=== PATIENT | female | born 1945 | race Caucasian/White ===

== ENCOUNTER 2018-12-27 11:24 | Observation (INO) ==
--- NOTE | 2018-12-27 12:33 | Diag Imaging Result Doc PS360 ---
EXAM: CHEST-2 VIEWS HISTORY: chest pain, SOB, generalized weakness TECHNIQUE: Chest two views COMPARISON: 07/14/2016 FINDINGS: The lungs are well expanded. The heart is not enlarged. The vessels are not distended. There are no infiltrates. No pleural effusions. There are multiple surgical clips in the left axilla. IMPRESSION: No acute abnormality. Electronically signed by Aubrey Hillman 12/27/2018 12:31 PM
--- NOTE | 2018-12-27 12:52 | Diag Imaging Result Doc PS360 ---
EXAM: CT HEAD W/O CONTRAST HISTORY: headache TECHNIQUE: CT head without contrast COMPARISON: 07/09/2016 FINDINGS: No parenchymal hemorrhage. No epidural or subdural hematoma. No subarachnoid hemorrhage. There is mild atrophy. No mass identified on this noncontrasted exam. No hydrocephalus. No sinus opacification. IMPRESSION: No hemorrhage. Negative brain CT without contrast. This exam was performed using automated exposure control, adjustment of mA or kV according to patient size, and/or use of iterative reconstruction technique. Electronically signed by Aubrey Hillman 12/27/2018 12:50 PM
[2018-12-27 13:05] LABS: BASO# 0.03 X1000 (0.0-0.2); BASO% 0.5 % (0.0-0.8); EOS# 0.12 X1000 (0.0-0.7); EOS% 2.1 % (0.0-10.0); HEMATOCRIT 38.6 % (37.0-47.0); HEMOGLOBIN 12.5 g/dL (12.0-16.0); LYMPH% 33.5 % (20.5-51.1); MCH 30.9 PG (27-31); MCHC 32.4 g/dL (33-37); MCV 95.3 FL (81-99); MONO% 7.1 % (1.7-9.3); MPV 10.7 FL (7.4-10.4); NEUT# 3.22 X1000 (1.4-6.5); NEUT% 56.8 % (42.2-75.2); PLT 177 X1000 (130-400); RBC 4.05 XMIL (4.2-5.4); RDW 12.7 % (11.5-14.5); WBC 5.67 X1000 (4.8-10.8)
[2018-12-27] MEDS ORDERED: ASPIRIN PO ONE (13:05)
[2018-12-27 13:14] LABS: INR 0.99; PROTIME 13.9 Seconds (11.0-16.0); PTT 26.4 Seconds (22.3-41.8)
[2018-12-27 13:43] LABS: ALB/GLOB RATIO 1.8; ALBUMIN 4.6 g/dL (3.5-5.0); CALCIUM 9.4 mg/dL (8.8-10.2); CREATININE 1.4 mg/dL (0.5-0.9); MAGNESIUM 1.4 mg/dL (1.5-2.7); POTASSIUM 3.6 mmol/L (3.5-5.1); TOTAL BILIRUBIN 0.4 mg/dL (0.20-1.00); TOTAL PROTEIN 7.2 g/dL (6.3-8.3)
--- NOTE | 2018-12-27 14:25 | PROVIDER DOCUMENTATION ---
This chart was entered by Becki San Scribe, acting as scribe for Lisa Crandall CRNP. HPI-Chest Pain - General Chief Complaint: Chest Pain Stated Complaint: HEALY,CHEST TIGHTNESS,DEPRESSION,CYST ON HEAD Time Seen by Provider: 12/27/18 11:40 Source: patient Allergies/Adverse Reactions: Patient Allergies Allergy/AdvReac Type Severity Reaction Status Date / Time codeine Allergy ITCHING Verified 09/07/17 01:15 hydrocodone bitartrate * AdvReac ITCHING Verified 09/07/17 01:15 [From [facility]] Home Medications: Home Medication List Medication Instructions Recorded Confirmed Last Taken Type Furosemide [Lasix] 20 mg PO BID 09/14/15 02/14/17 02/14/17 History Metformin HCl 850 mg PO BID 09/14/15 02/14/17 02/14/17 History Omeprazole [Prilosec] 20 mg PO DAILY 09/14/15 02/14/17 02/13/17 History Insulin Aspart [Novolog] 15 unit SQ TID 07/08/16 02/14/17 02/14/17 History Aspirin 325 mg PO DAILY #0 tablet 07/20/16 02/14/17 02/14/17 Rx Buspirone [Buspar] 7.5 mg PO BID #0 tablet 07/20/16 02/14/17 02/14/17 Rx Docusate Sodium [Colace] 100 mg PO BID #0 capsule 07/20/16 02/14/17 02/14/17 Rx Donepezil [Aricept] 10 mg PO QHS #0 tablet 07/20/16 02/14/17 02/13/17 Rx Gabapentin [Neurontin] 900 mg PO BID #0 capsule 07/20/16 02/14/17 02/14/17 Rx Insulin Glargine [Lantus] 80 unit SUBQ QAM #0 insuln.pen 07/20/16 02/14/1701/27 Rx Levothyroxine [Synthroid] 75 microgm PO DAILY@0700 #0 tablet 07/20/16 02/14/17 02/13/17 Rx ROSUVAstatin [Crestor] 40 mg PO QHS #0 tablet 07/20/16 02/14/17 02/13/17 Rx Ropinirole [Requip] 0.5 mg PO BID #0 tablet 07/20/16 02/14/17 02/14/17 Rx Sertraline [Zoloft] 100 mg PO DAILY #0 tablet 07/20/16 02/14/17 02/14/17 Rx Oxycodone HCl/Acetaminophen 1 each PO 4XDAY #10 tablet 12/23/16 02/14/17 02/13/17 Rx [Percocet 5-325 mg Tablet] Meloxicam [Mobic] 7.5 mg PO DAILY PRN PRN #15 tablet 03/03/17 Unknown Rx Cyclobenzaprine [Flexeril] 10 mg PO TID PRN #30 tablet 03/20/17 Unknown Rx Methocarbamol [Robaxin-750] 750 mg PO Q8H PRN #20 tablet 03/20/17 Unknown Rx Tramadol HCl [Ultram] 50 mg PO Q6-8H PRN PRN #20 tablet 03/20/17 Unknown Rx Bisacodyl [Dulcolax] 10 mg MO BID #20 supp 06/27/17 Unknown Rx Polyethylene Glycol 3350 [Miralax] 1 cap PO BID #1 powder 06/27/17 Unknown Rx Phenazopyridine HCl [Pyridium] 100 mg PO TID #6 tab 02/24/18 Unknown Rx Sulfamethoxazole/Trimethoprim 1 ea PO BID #10 tab 02/24/18 Unknown Rx [Bactrim Ds Tablet] - History of Present Illness-CP Nature of Presenting Problem: 73yof c/o generalized weakness for 2 weeks with intermittent exertional chest pain and sob x one month. She reports she lost her balance due to weakness and almost fell this morning. She was caught by her granddaughter. She denies fever, chills, nausea, vomiting, diarrhea, cough, or any other symptoms and is non- toxic in appearance. Location: reports: central Chest Pain Radiation: reports: no radiation Quality of Pain: reports: tightness Severity in ED: mild Onset/Duration: other (2 weeks, one month) Timing: still present, intermittent, constant Context/Activities at Onset: reports: none Modifying Factors: improves with: nothing Associated Symptoms: reports: shortness of breath, weakness (generalized). denies: fever/chills, nausea, vomiting Prior Chest Pain/Cardiac Workup: reports: other (hx of one stent) Similar Symptoms Previously?: No Recently Seen Here or By Another Healthcare Provider: No Review of Systems - Adult - REVIEW OF SYSTEMS - ADULT Constitutional: denies: chills, fever Eyes: denies: discharge, dry eyes Ears, Nose, Mouth & Throat: denies: ear discharge, ear pain Cardiovascular: reports: chest pain. denies: palpitations Respiratory: reports: shortness of breath. denies: cough Gastrointestinal: denies: nausea, vomiting Genitourinary: denies: dysuria, hematuria Musculoskeletal: denies: back pain, muscle aches, muscle weakness Integumentary: reports: no symptoms reported Neurological: denies: dizziness/vertigo, headache/migraines Psychiatric: reports: no symptoms reported Endocrine: reports: no symptoms reported Hematologic/Lymphatic: reports: no symptoms reported Allergic/Immunologic: reports: no symptoms reported All Other Systems: Reviewed and Negative Past History - Adult - PAST MEDICAL HISTORY-ADULT Review of Records: reports: Old Records Reviewed, Nursing Assessment Review, Medications Reviewed Major Childhood Illnesses: reports: denies history Cardiovascular: reports: CAD (s/p stent), HTN, hyperlipidemia Respiratory: reports: asthma Gastrointestinal: reports: denies history, GERD Obstetrical/Gynecological: reports: denies history Genitourinary: reports: denies history Musculoskeletal: reports: arthritis, chronic pain Neurological: reports: denies history Psychiatric: reports: anxiety Endocrine/Immune: reports: denies history Other Conditions: reports: denies history - PRIOR SURGERIES/PROCEDURES Surgical/Procedure History: reports: appendectomy, hysterectomy (and oophorectomy), other (cardiac stent) - IMMUNIZATION STATUS Childhood Immunizations: See Nurse Assessment Flu Vaccine: See Nurse Assessment - FAMILY HISTORY Family History: reviewed, not pertinent - SOCIAL HISTORY Smoking: non-smoker Substance Use: denies Living Situation: family Physical Exam-General - PHYSICAL EXAM-ADULT Initial Vital Signs Reviewed: Yes - CONSTITUTIONAL General Appearance: alert, no apparent distress. negative: lethargic, slow to respond - EYES Eyes: PERRL/EOMI, pink conjunctivae. negative: sclera injected, scleral icterus, sunken eyes - HEAD, EARS, NOSE, MOUTH & THROAT HENMT: normocephalic/atraumatic, moist mucous membranes - NECK Neck: non-tender, full range of motion, supple, normal inspection - RESPIRATORY Respiratory: chest non-tender, lungs clear, normal breath sounds, no pleuratic chest pain, no respiratory distress, no accessory muscle use - CARDIOVASCULAR Cardiovascular: normal peripheral pulses, regular rate, rhythm, no edema, no gallop, no JVD, no murmur - GASTROINTESTINAL (ABDOMEN) Abdominal Exam: normal bowel sounds, non tender, soft, no organomegaly, no pulsatile mass. negative: distended, guarding - MUSCULOSKELETAL Back Exam: normal inspection Extremity: normal range of motion, non-tender, normal inspection, no pedal edema - SKIN Integumentary: normal color, warm/dry. negative: cyanosis, diaphoresis, jaundice, mottled, pallor - NEUROLOGIC Neurologic: grossly normal, no motor/sensory deficits - PSYCHIATRIC Psych/Mental Status: normal mood/affect, normal thought content, normal thought process, oriented x 3 - HEART Score HEART Score: History: Moderately Suspicious HEART Score: ECG: Non-Specific Repolarization Disturbance/LBBB/PM HEART Score: Age: > or = 65 Years HEART Score: Risk Factors for Atherosclerotic Disease: > or = 3 Risk Factors or History of Atherosclerotic Disease HEART Score: Troponin: < or = Normal Limit Total HEART Score:: 6 Progress - PLAN OF CARE/RESULTS Progress/Plan/Lab Results: Vital Signs - 8 hr 12/27/18 11:36 12/27/18 11:49 12/27/18 11:50 Temperature 98.6 F Pulse Rate 92 H 89 Respiratory Rate 17 10 L Blood Pressure 131/83 163/93 O2 Sat by Pulse Oximetry 95 98 100 12/27/18 12:00 12/27/18 12:02 12/27/18 12:10 Temperature Pulse Rate 89 85 84 Respiratory Rate 17 12 11 L Blood Pressure 147/100 O2 Sat by Pulse Oximetry 100 100 99 Laboratory Results - last 24 hr 12/27/18 12/27/18 12/27/18 11:40 12:56 12:56 WBC 5.67 RBC 4.05 L Hgb 12.5 Hct 38.6 MCV 95.3 MCH 30.9 MCHC 32.4 L RDW Std Deviation 12.7 Plt Count 177 MPV 10.7 H Immature Gran % (Auto) 0.0 Neut % (Auto) 56.8 Lymph % (Auto) 33.5 Turner % (Auto) 7.1 Eos % (Auto) 2.1 Baso % (Auto) 0.5 Immature Gran # (Auto) 0.00 Neut # (Auto) 3.22 Lymph # (Auto) 1.90 Turner # (Auto) 0.40 Eos # (Auto) 0.12 Baso # (Auto) 0.03 PT INR PTT (Actin FS) Sodium 144 Potassium 3.6 Chloride 105 Carbon Dioxide 25 Anion Gap 14 BUN 14 Creatinine 1.4 H Estimated GFR/1.73 m2 37 BUN/Creatinine Ratio 10 Glucose 116 H POC Glucose 156 H Calculated Osmolality 288 Calcium 9.4 Magnesium 1.4 L Total Bilirubin 0.40 AST 26 ALT 12 Alkaline Phosphatase 35 Creatine Kinase 52 Troponin T Wbc-M-Gcjlhpohvkb Pept Total Protein 7.2 Albumin 4.6 Globulin 2.6 Albumin/Globulin Ratio 1.8 12/27/18 12/27/18 12/27/18 12:56 12:56 12:56 WBC RBC Hgb Hct MCV MCH MCHC RDW Std Deviation Plt Count MPV Immature Gran % (Auto) Neut % (Auto) Lymph % (Auto) Turner % (Auto) Eos % (Auto) Baso % (Auto) Immature Gran # (Auto) Neut # (Auto) Lymph # (Auto) Turner # (Auto) Eos # (Auto) Baso # (Auto) PT 13.9 INR 0.99 PTT (Actin FS) 26.4 Sodium Potassium Chloride Carbon Dioxide Anion Gap BUN Creatinine Estimated GFR/1.73 m2 BUN/Creatinine Ratio Glucose POC Glucose Calculated Osmolality Calcium Magnesium Total Bilirubin AST ALT Alkaline Phosphatase Creatine Kinase Troponin T < 0.010 [id number]-Ikwzxryvfhc Pept 230 Total Protein Albumin Globulin Albumin/Globulin Ratio Orders Category Date Time Status Cardiac Monitoring DIRECTED Care 12/27/18 12:10 Active Saline Loc NOW Care 12/27/18 12:11 Active CHEST-2 VIEWS [RAD] Stat Exams 12/27/18 12:[address] HEAD W/O CONTRAST [CT] Stat Exams 12/27/18 12:10 Completed CBC WITH DIFF [HEME] Stat Lab 12/27/18 12:56 Completed CK PROFILE [SP CHEM] Stat Lab 12/27/18 12:56 Completed COMPREHENSIVE METABOLIC PANEL [CHEM] Stat Lab 12/27/18 12:56 Completed MAGNESIUM [CHEM] Stat Lab 12/27/18 12:56 Completed PRO B-NATRIURETIC PEPTIDE Stat Lab 12/27/18 12:56 Completed PROTIME WITH INR [COAG] Stat Lab 12/27/18 12:56 Completed PTT [COAG] Stat Lab 12/27/18 12:56 Completed TROPONIN T Stat Lab 12/27/18 12:56 Completed TROPONIN T Timed Lab 12/27/18 14:55 Uncollected UA NIMS W/REFLEX CULT [URINALYSIS] Stat Lab 12/27/18 12:10 Uncollected Aspirin Med 12/27/18 13:05 Discontinued 325 mg PO NOW ONE EKG [EKG] Routine Ther 12/27/18 14:55 Ordered 1410- Admitting HPS paged. Pt in agreement with admission plan. Result Diagrams: 12/27/18 12:56 12/27/18 12:56 - EKG 1 Time of EKG reading by physician:: 11:33 EKG Read and Signed by:: Hal Polk EKG Interpretation (*Must complete 3 of following elements*): Abnormal Rate: 88 Rhythm: Sinus rhythm MO Interval: shortened ST Wave: non-specific ST changes - XRAY 1 XRAY Study: Chest Impression: Abnormal (FINDINGS: The lungs are well expanded. The heart is not enlarged. The vessels are not distended. There are no infiltrates. No pleural effusions. There are multiple surgical clips in the left axilla. IMPRESSION: No acute abnormality.) - CT/MRI 1 CT Study: Head Impression: Abnormal (FINDINGS: No parenchymal hemorrhage. No epidural or subdural hematoma. No subarachnoid hemorrhage. There is mild atrophy. No mass identified on this noncontrasted exam. No hydrocephalus. No sinus opacification. IMPRESSION: No hemorrhage. Negative brain CT without contrast. This exam was performed using automated exposure control, adjustment of mA or kV according to patient size, and/or use of iterative reconstruction technique. Electronically signed by Aubrey Hillman 12/27/2018 12:50 PM) - CONSULTS/PCP/HOSPITALIST Notification #1 *Consult/PCP/Hospitalist*: ANDREW Diaz EPIDEMIOLOGY INTERN Time Discussed: 14:16 Reason/Comments: chest pain admission Consult Disposition: Admit Departure - Departure Date of Disposition Decision: 12/27/18 Time of Disposition Decision: 14:20 DIAGNOSIS: SOB (shortness of breath), Generalized weakness Chest pain Qualifiers: Chest pain type: unspecified Qualified Code(s): R07.9 - Chest pain, unspecified Disposition: ADMITTED INPATIENT 09 Certified Medical Emergency: Emergent Condition: Stable Referrals and Follow-Ups: Wyatt Chambers MD [Primary Care Provider] - - Critical Care Note This patient required my direct & personal management of CC.: No Attestation - Physician/ RASHAWN Attestation Patient care was provided by Advanced Practice Provider:: Yes Advanced Practice Provider:: Lisa Crandall Advanced Practice Provider documentation review:: The Mid-level provider documentation, treatment plan and medical decision making was reviewed by the physician who agrees with all treatment and medical decision making by the MLP. The physician spent face to face time with patient:: No Advanced Practice Provider documentation review:: Supervising physician onsite and consulted in the evaluation and care of this patient. The physician did not have a face to face encounter with the patient. This chart was documented by the indicated scribe, (Becki San, [place]) a nd accurately reflects the services I performed and decisions made by me, Lisa Crandall CRNP, as attested by the provider's signature.
[2018-12-27] MEDS ORDERED: NITROGLYCERIN SL PRN (15:49)
[2018-12-27] MEDS ORDERED: TYLENOL PO PRN (15:49)
[2018-12-27] MEDS ORDERED: ZOFRAN IV PRN (15:49)
[2018-12-27] MEDS ORDERED: MORPHINE IV PRN (15:49)
[2018-12-27] MEDS ORDERED: MAGNESIUM SULFATE 2 GM/S.W.I. 2 GM/50 ML IVPB IV ONE (16:24)
--- NOTE | 2018-12-27 16:25 | ED EKG INTERP ---
This chart was entered by Becki San Scribe, acting as scribe for Hal Polk MD. EKG Interpretation - EKG Time of EKG reading by physician:: 15:01 EKG Read and Signed by:: Hal Polk EKG Interpretation (*Must complete 3 of following elements*): Abnormal Rate: 81 Rhythm: Normal sinus rhythm [place]: normal ST Wave: normal Attestation - Physician/ RASHAWN Attestation Patient care was provided by Advanced Practice Provider:: Yes Advanced Practice Provider:: Lisa Crandall Advanced Practice Provider documentation review:: The Mid-level provider documentation, treatment plan and medical decision making was reviewed by the physician who agrees with all treatment and medical decision making by the MLP. The physician spent face to face time with patient:: No Advanced Practice Provider documentation review:: Supervising physician onsite and consulted in the evaluation and care of this patient. The physician did not have a face to face encounter with the patient. This chart was documented by the indicated scribe, (Becki San Scribe) and accurately reflects the services I performed and decisions made by me, Hal Polk MD, as attested by the provider's signature.
[2018-12-27] MEDS: HUMULIN R SUBQ SCH ×2 (17:08→20:13)
--- NOTE | 2018-12-27 17:21 | HISTORY AND PHYSICAL ---
PRIMARY CARE PROVIDER: Wyatt Chambers MD CHIEF COMPLAINT: Itching, chest pressure, shortness of breath, dizziness, lightheadedness, falls and headaches. HISTORY OF PRESENT ILLNESS: Ms. Trudi Berger is a 73-year-old female with a medical history of coronary artery disease with one cardiac stent, diabetes mellitus type 2, chronic pain syndrome and GERD who apparently over the last one month has complained of just generalized itchiness all over her body without rash, she states from head to toe, but also along with that she has had some chest pressure which has been intermittent. It does not radiate anywhere. She does not get nauseated. She does have shortness of breath with it. She has also had dizziness and lightheadedness over a couple of months with a few falls with one being around 2-3 weeks ago when she was trying to move a table. She fell and broke her left fifth pinky toe and also hit the back of her head. She has been having headaches. She has been taking Goody's every day instead of aspirin every day. She denies any tobacco. She is not morbidly obese but there is a pretty significant family history of coronary disease. We will admit and do a cardiac workup and send her for a cardiac stress test in the morning. She is on a diabetic diet and we will make her n.p.o. after midnight for the stress test. Cardiac enzymes are negative. There are no ST changes on her EKG. For now we will monitor and she can followup with Cardiology as an outpatient, or we may eventually have to consult them here. She states that lately she has had a lot of financial stress with her children and she also ran out of the medication she takes for anxiety about a month ago as well. PAST MEDICAL HISTORY: 1. Diabetes mellitus type 2. 2. Neuropathy in the feet and legs. 3. Hypothyroidism. 4. Coronary artery disease with one cardiac stent. 5. Depression and anxiety. 6. Hyperlipidemia. 7. Constipation. She states it is resolved and she has more diarrhea than constipation now. 8. Chronic pain syndrome in her feet primarily. 9. Arthritis. 10.Restless leg syndrome. 11.Hypertension. 12.GERD. 13.Iron deficiency anemia. 14.Gallstones. 15.Melanoma in 1987 status post excision and lymph node removal. 16.Chronic kidney disease stage 3. PAST SURGICAL HISTORY: 1. Cardiac stent in 2005. 2. Bilateral cataracts. 3. Appendectomy. 4. Hysterectomy. 5. Stage IV melanoma removed from the left forearm. 6. Left arm radical axillary surgery removing 21 lymph nodes and did not have to receive chemotherapy. 7. Right shoulder repair. SOCIAL HISTORY: Denies tobacco, alcohol or illicit drug use. She lives with her granddaughter and great granddaughter. She still works. 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 FAMILY HISTORY: Father's side of the family, DVT and coronary artery disease. Mother's side of the family, coronary artery disease, congestive heart failure and depression. She had four brothers; three are but all four had to have bypass surgery for coronary artery disease. One sister had a brain tumor. Another sister had a myocardial infarction and cervical cancer. ALLERGIES: Codeine and hydrocodone. HOME MEDICATIONS: Not verified, awaiting these to be verified. REVIEW OF SYSTEMS: A 14-point review of systems is complete and all are negative except those mentioned above in the HPI. PHYSICAL EXAMINATION: VITAL SIGNS: Temperature 98.6, heart rate 82, respiratory rate 15, blood pressure 147/100. O2 saturation 100% on room air. GENERAL: Ms. Trudi Berger is a 73-year-old female. She is in no acute distress. She is able to answer questions appropriately. HEENT: Atraumatic. Normocephalic. Pupils equal, round and reactive to light. Extraocular movements are intact. Mucous membranes are moist. NECK: Trachea is midline. Negative JVD or carotid bruits. LUNGS: Clear to auscultation bilateral breath sounds. No accessory muscle use or work with breathing noted. CARDIOVASCULAR: S1 and S2. Regular rate and rhythm. No rubs, gallops or murmurs. No lower extremity edema. +2 dorsalis pedis and radial pulses. ABDOMEN: Soft. Nontender. Nondistended. Positive bowel sounds x4. EXTREMITIES: Moves all extremities equally with decreased range of motion. NEUROLOGIC: Alert and oriented x3. Follows commands. Sensory intact except for a little bit of numbness in the feet and tingling in the feet. SKIN: Warm, dry and intact. LABORATORY DATA: White blood cell count 5000, hemoglobin 12, hematocrit 38, platelet count 177. INR 0.99. PTT 26.4. Sodium 144, potassium 3.6, BUN 14, creatinine 1.4, glucose 116, calcium 9.4, magnesium 1.4, bilirubin 0.40. AST 26, ALT 12. CK 52. Troponin less than 0.01 x2. Pro-BNP 230, albumin 4.6. IMAGING: Chest x-ray with no acute findings. Head CT with no hemorrhage. Negative for any acute findings. EKG; normal sinus rhythm rate [address]-T changes. ASSESSMENT AND PLAN: 1. Atypical chest pain. It has been intermittent and feels like pressure. She has had dizziness and lightheadedness for a couple of months and even prior to having this symptom as well. She has had itching for a month along with a lot of stress and her anxiety medications falling off, or she did not have time to get them renewed. While this could be caused from stress, she does have a history of coronary artery disease with cardiac stent and she had stopped taking her aspirin and changed to Goody powders once a day. She will need to continue the aspirin and statin. It does not look like she is on a beta jacobo but will need to continue with insulin control as well. She will have a stress test in the morning. 2. Complaints of weakness for the last couple of weeks. We will consult physical therapy. 3. Frequent falls, see No. 2. She had fallen and hit her head and has had headaches since. She had a head CT this admission and it is negative. 4. Diabetes mellitus type 2. Will do pattern blood glucoses and sliding scale insulin and check a hemoglobin A1c. Do a diabetic diet. 5. Hypothyroidism. Continue Synthroid once it is verified. 6. Anxiety/depression. Will continue those medications once they are verified. 7. Chronic pain syndrome. Continue her Percocet once it is verified. 8. Hypertension. Continue home medications once verified. 9. Gastroesophageal reflux disease. 10.Chronic kidney disease stage 3. It looks like she is at baseline. 11.Deep vein thrombosis prophylaxis with Lovenox. Dictated by SHERICE White for Prashanth Piña MD cc: SHERICE White MD
[2018-12-27 17:33] LABS: URINE SOURCE CLEAN CATCH
[2018-12-27 17:44] LABS: BILIRUBIN URINE NEGATIVE (NEGATIVE); BLOOD URINE NEGATIVE (NEGATIVE); COLOR YELLOW; GLUCOSE URINE NEGATIVE (NEGATIVE); KETONE URINE TRACE mg/dL (NEGATIVE); LEUKOCYTES URINE TRACE (NEGATIVE); NITRITE URINE NEGATIVE (NEGATIVE); PH URINE 7.5; PROTEIN URINE 30 mg/dL (NEGATIVE); SP GRAVITY URINE 1.019; TURBIDITY URINE CLEAR (CLEAR); UROBILINOGEN URINE 2 mg/dL (NORMAL)
[2018-12-27 17:49] LABS: UR EPITHELIAL CELLS <10 /HPF (<10); URINE BACTERIA NEGATIVE /HPF; URINE RBC <10 /HPF (<10); URINE WBC <10 /HPF (<10)
[2018-12-27 18:08] LABS: URINE CASTS NONE SEEN; URINE CRYSTALS NONE SEEN; URINE SMALL ROUND CELLS NONE SEEN; URINE YEAST NONE SEEN
--- NOTE | 2018-12-27 18:52 | PROGRESS NOTE ---
DATE: 12/27/2018 HISTORY OF PRESENT ILLNESS: The patient came in with atypical chest pain. She has a history of CAD. A stent in 1995. One PCI. She has not had a workup in a couple of years. She used to see Dr. Montemayor but has been set up with a new senior construction project manager. She, herself, has lost herself to follow- up. In any case, she was admitted for atypical chest pain. We will place her here. Do serial cardiac enzymes. EKG so far testing is unrevealing. We will get an echo an and perfusion scan in the morning and set her up with new Cardiology and follow. DISPOSITION: Pending her clinical status. cc: Prashanth Piña MD
[2018-12-27] MEDS ORDERED: NS 1,000 ML IV ONE (23:00)
[2018-12-28] MEDS: PRILOSEC PO SCH ×2 (06:18→13:45)
[2018-12-28] MEDS: HUMULIN R SUBQ SCH ×4 (06:18→21:41)
[2018-12-28 07:02] LABS: BASO# 0.03 X1000 (0.0-0.2); BASO% 0.7 % (0.0-0.8); EOS% 2.4 % (0.0-10.0); HEMATOCRIT 36.3 % (37.0-47.0); HEMOGLOBIN 11.8 g/dL (12.0-16.0); LYMPH# 1.52 X1000 (1.2-3.4); LYMPH% 36.9 % (20.5-51.1); MCHC 32.5 g/dL (33-37); MCV 95.3 FL (81-99); MONO# 0.26 X1000 (0.11-0.59); MONO% 6.3 % (1.7-9.3); MPV 10.6 FL (7.4-10.4); NEUT# 2.21 X1000 (1.4-6.5); NEUT% 53.7 % (42.2-75.2); PLT 158 X1000 (130-400); RBC 3.81 XMIL (4.2-5.4); WBC 4.12 X1000 (4.8-10.8)
[2018-12-28 07:07] LABS: INR 1.04; PROTIME 14.5 Seconds (11.0-16.0)
[2018-12-28 07:20] LABS: HEMOGLOBIN A1C 8.2 % (4.8-6.0)
[2018-12-28 07:34] LABS: AGAP 13; ALB/GLOB RATIO 1.8; ALBUMIN 4.2 g/dL (3.5-5.0); ALKALINE PHOSPHATASE 35 U/L (32-104); BUN 14 mg/dL (8-22); CALCIUM 9.4 mg/dL (8.8-10.2); CHLORIDE 107 mmol/L (98-107); CHOLESTEROL 227 mg/dL (0-200); COSMO 290; CREATININE 1.1 mg/dL (0.5-0.9); ESTIMATED GFR 49; GLUCOSE 173 mg/dL (70-104); GOT 20 U/L (10-30); GPT 10 U/L (10-36); HDL 29 mg/dL (45-65); LDL 142 mg/dL; MAGNESIUM 1.9 mg/dL (1.5-2.7); POTASSIUM 3.6 mmol/L (3.5-5.1); SODIUM 143 mmol/L (136-145); TCO2 23 mmol/L (25-35); TOTAL BILIRUBIN 0.34 mg/dL (0.20-1.00); TOTAL PROTEIN 6.5 g/dL (6.3-8.3); TRIGLYCERIDES 280 mg/dL (35-135); VLDL 56 mg/dL
[2018-12-28 07:45] LABS: FREE T4 0.92 ng/dL (0.93-1.70); TSH 3.06 uIUmL (0.27-4.20)
[2018-12-28] MEDS ORDERED: LEXISCAN ONE (07:46)
--- NOTE | 2018-12-28 07:50 | EKG Report ---
Test Performed on : 12/28/2018 07:03:04 AM Test Reason : chest pain Blood Pressure : / mmHG Vent. Rate : 064 BPM Atrial Rate : 064 BPM P-R Int : 150 ms QRS Dur : 086 ms QT Int : 442 ms P-R-T Axes : 040 018 056 degrees QTc Int : 455 ms Normal sinus rhythm. Nonspecific T wave abnormality Abnormal ECG When compared with ECG of 27-DEC-2018 15:01, (Unconfirmed) Criteria for Inferior infarct are no longer present Nonspecific T wave abnormality, improved in Lateral leads Unconfirmed Result
--- NOTE | 2018-12-28 08:16 | EKG Report ---
Test Performed on : 12/27/2018 3:01:38 PM Test Reason : CP Blood Pressure : / mmHG Vent. Rate : 081 BPM Atrial Rate : 081 BPM P-R Int : 134 ms QRS Dur : 084 ms QT Int : 412 ms P-R-T Axes : 088 -12 084 degrees QTc Int : 478 ms Normal sinus rhythm. Inferior infarct , age undetermined Abnormal ECG When compared with ECG of 27-DEC-2018 11:33, (Unconfirmed) Nonspecific T wave abnormality, worse in Lateral leads Unconfirmed Result
[2018-12-28] MEDS ORDERED: AMINOPHYLLINE ONE (08:32)
[2018-12-28] MEDS ORDERED: ASPIRIN EC PO SCH ×2 (09:00)
[2018-12-28] MEDS ORDERED: ASPIRIN PO SCH (09:00)
--- NOTE | 2018-12-28 10:45 | EKG Report ---
Test Performed on : 12/27/2018 11:33:06 AM Test Reason : ED. NO EKG ORDER FOR MUSE Blood Pressure : / mmHG Vent. Rate : 088 BPM Atrial Rate : 088 BPM P-R Int : 104 ms QRS Dur : 080 ms QT Int : 366 ms P-R-T Axes : 004 -03 069 degrees QTc Int : 442 ms Sinus rhythm. with short MN Nonspecific ST and T wave abnormality Abnormal ECG When compared with ECG of 27-JUN-2017 16:50, T wave inversion now evident in Inferior leads Nonspecific T wave abnormality, worse in Lateral leads Unconfirmed Result
[2018-12-28] MEDS: ZOLOFT PO SCH (11:47)
[2018-12-28] MEDS: LOVENOX SUBQ SCH (11:47)
--- NOTE | 2018-12-28 12:05 | PROGRESS NOTE ---
DATE: 12/28/2018 SUBJECTIVE: The patient just had a stress test and echocardiogram done today. She is resting comfortably in bed. At this moment, she is not complaining of chest pain, but she feels anxious. I will wait for the results. I will put her back on most of her home medications. PHYSICAL EXAMINATION: Vital Signs: Temperature 98.7 degrees, pulse 73, respiratory rate 20, blood pressure 121/75, oxygen saturation 100% on room air. HEENT: Normocephalic, atraumatic. PERRLA. Neck: Supple. No JVD. No masses. Central trachea. Chest: Clear to auscultation. No wheezing. No rales. Abdomen: Soft, nontender, nondistended. No hepatosplenomegaly. Extremities: No edema, no clubbing, no cyanosis. Neurological: The patient is alert and oriented x3. No focal deficits. LABORATORY: WBC 4.1, hemoglobin 11.8, hematocrit 36.3, platelets 158,000. Sodium 143, potassium 3.6, chloride 107, bicarbonate 23, BUN 14, creatinine 1.1, glucose 173, calcium 9.4. Hemoglobin A1c 8.2. Troponins negative x4. Triglycerides 280, cholesterol 227, LDL 142. TSH 3. ASSESSMENT AND PLAN: 1. Chest pain, probably atypical. We have requested an evaluation by cardiology department and also a stress test and echocardiogram. I will wait for more recommendations. At this moment, this patient is feeling better. 2. Generalized weakness for a couple weeks. Continue physical therapy. She seems to be doing fine. 3. Frequent falls. The patient has a really bad peripheral neuropathy. We will see what Physical Therapy has to say for now. 4. Type 2 diabetes. Continue pattern blood sugar and sliding scale insulin. Hemoglobin A1c is 8.2. 5. Hypothyroidism. Continue with Synthroid. 6. Anxiety and depression. Continue with home medications. 7. Chronic pain syndrome. She is on Percocet at night. 8. Hypertension. Continue with same management. Stable. 9. Gastroesophageal reflux disease. I put her back on pantoprazole. 10. Chronic kidney disease stage 3. This is her baseline. 11. Deep vein thrombosis prophylaxis with Lovenox. cc: Patrick Bauer MD
--- NOTE | 2018-12-28 12:39 | CARDIOLOGY CONSULTATION ---
DATE: 12/28/2018 SUBJECTIVE: Cardiology was consulted for chest discomfort, known coronary artery disease, a history of CAD and stent placement, diabetes, chronic pain syndrome, and gastroesophageal reflux disease. She has had itching all over her body without any rash and also noticed some intermittent chest pressures not radiating to the back. She does have some shortness of breath. She had some dizziness and lightheadedness. No lolita syncope. She fell and broke her left pinky toe and came to the emergency room. CT scan of her head was unremarkable. REVIEW OF SYSTEMS: A 14-point review of system was done.GI System: There is no history of nausea, vomiting or hematemesis. Central Nervous System: No focal weakness to suggest a CVA, TIA. System: There is no dysuria or hematuria. Respiratory System: There is no history of cough, expectoration, hemoptysis. There is no history of fevers or chills. PAST MEDICAL HISTORY: 1. Coronary artery disease, status post stent placement to left anterior descending artery in the past. Last cardiac catheterization 07/17/2016, patent stent to the left anterior descending artery. Right coronary artery 10% to 15% stenosis. Mild irregularities in the circumflex noted. 2. Diabetes. 3. Neuropathy. 4. Hypothyroidism. 5. Depression and anxiety. 6. Constipation. 7. Restless legs syndrome. 8. Hypertension. 9. Gastroesophageal reflux disease. 10. Iron deficiency anemia. 11. Gallstones. PAST SURGICAL HISTORY: 1. Cardiac stent. 2. Cataract surgery. 3. Appendectomy. 4. Hysterectomy. 5. 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 6. Left arm axillary surgery. 7. Right shoulder repair. SOCIAL HISTORY: She does not smoke. Does not drink. FAMILY HISTORY: Positive for DVT, coronary artery disease. ALLERGIES: Allergic to codeine and hydrocodone. HOME MEDICATIONS: Include 1. Omeprazole 20. 2. Metformin 850 b.i.d. 3. Insulin 50 mg NovoLog subcutaneous t.i.d. 4. BuSpar 15 mg a day. 5. Gabapentin 900 mg p.o. b.i.d. 6. Insulin as directed. 7. Crestor 40. 8. Requip 0.5 mg twice a day. 9. Fenofibrate 145. 10. Sertraline 50 mg tablets 150 a day. 11. Levothyroxine. PHYSICAL EXAMINATION: Vital Signs: Blood pressure was 121/75. Cardiovascular System: Normal jugular venous pressure. There was no thyromegaly. There was no carotid bruit. First and second heart sounds were heard. There was no S3 gallop. Respiratory System: Normal air entry. There are no crepitations or rhonchi. Abdomen: Soft, nontender. There was no guarding or rigidity. Bowel sounds were heard. Central nervous system: Alert and oriented. She was moving all 4 extremities. Extremities: Showed no pedal edema. HEENT: Atraumatic, normocephalic. Pupils were equal and reacting to light. ASSESSMENT AND PLAN: 1. Ms. Trudi Berger is a 73-year-old, lady with history of coronary artery disease, stent placement to left anterior descending artery in the past, diabetes, diabetic neuropathy, hypothyroidism, hyperlipidemia, hypertension, who comes with complaints of having intermittent episodes of chest pain as described above. From a cardiac standpoint, she was ruled out for myocardial infarction by cardiac enzymes. She also had frequent falls. Her electrocardiogram revealed normal sinus rhythm. There were no ST-T changes to suggest ischemia. Stress test did not reveal any evidence of ischemia. 2. From a cardiac standpoint, would recommend continuing enteric-coated aspirin, lipid-lowering agents, and I have added Lopressor 25 mg twice daily to her medical regimen. 3. Diabetes. Continue with the current medications. 4. Hyperlipidemia. Continue with Crestor and fenofibrate. 5. She had history of gastroesophageal reflux disease and is on omeprazole. I have not made any changes. Thank you for the consult. We will make follow-up appointments to see us in the office in about 4 weeks. cc: Navneet Griggs MD
--- NOTE | 2018-12-28 13:28 | Diag Imaging Result Document ---
PROCEDURE NAME: MYOCARDIAL PERF SCAN, STR/REST - 12/28/2018 INDICATION: Chest pain. PROCEDURES PERFORMED: 1. Lexiscan stress. 2. One-day stress rest myocardial perfusion imaging. PROCEDURE IN DETAIL: Ms. eBrger was brought to the nuclear laboratory and had a resting study with injection of 10.8 mCi of technetium-99m sestamibi with usual imaging protocol utilized. She subsequently came back and had a Lexiscan stress. At peak stress, was injected with 31.2 mCi of technetium-99m sestamibi with usual imaging protocol utilized. FINDINGS: Lexiscan stress results: 1. Baseline EKG shows sinus rhythm. 2. No evidence of ischemic related EKG changes or significant arrhythmias occurred during the course of the study. Perfusion imaging results: 1. No evidence of abnormal extracardiac uptake. 2. TID ratio of 0.83. 3. Perfusion imaging demonstrated a very small size, mild intensity, fixed defect at the apex, likely suggestive of apical thinning artifact. There was no evidence of ischemic changes. This appears to be a low risk study. 4. There is a normal ejection fraction of 81%. The end-diastolic volume is 52, end-systolic volume of 10. Normal wall motion is noted. cc: MD Emily Villaseñor CRNP
[2018-12-28] MEDS: LOPRESSOR PO SCH ×2 (13:45→21:39)
--- NOTE | 2018-12-28 14:18 | ECHO REPORT ---
ORDER DATE: 12/28/2018 INDICATION: Chest pain, shortness of breath. FINDINGS: 1. Right atrium appears mildly enlarged with a dimension of 4 cm. 2. Trace tricuspid regurgitation. 3. Normal RV size and systolic function. 4. Trace pulmonic insufficiency. 5. Normal left atrial size with a dimension of 3.6 cm. 6. No mitral valve prolapse. Trace mitral regurgitation. 7. Normal LV size, end-diastolic dimension of 4.3. Mild to moderate left ventricular hypertrophy with a posterior and interventricular septal wall thickness of 1.4 cm each. Normal LV systolic function. Estimated EF of 60-65% with normal wall motion. 8. Aortic valve opens well. It is trileaflet. There is trace insufficiency. No stenosis. 9. Aorta appears normal in visualized segments. 10. No pericardial effusion seen. cc: MD Emily Villaseñor CRNP
[2018-12-28] MEDS ORDERED: MORPHINE IV PRN (16:04)
[2018-12-28] MEDS: CRESTOR PO SCH (21:39)
[2018-12-28] MEDS: BUSPAR PO SCH (21:39)
[2018-12-28] MEDS: NEURONTIN PO SCH (21:39)
[2018-12-28] MEDS: PERCOCET-5 PO SCH (21:40)
[2018-12-29] MEDS: PRILOSEC PO SCH (06:25)
[2018-12-29] MEDS: SYNTHROID PO SCH (06:25)
[2018-12-29] MEDS: HUMULIN R SUBQ SCH ×4 (06:27→20:28)
[2018-12-29 07:25] LABS: HEMATOCRIT 37.7 % (37.0-47.0); HEMOGLOBIN 12.3 g/dL (12.0-16.0); MCH 31.3 PG (27-31); MCHC 32.6 g/dL (33-37); MCV 95.9 FL (81-99); MPV 11.2 FL (7.4-10.4); RBC 3.93 XMIL (4.2-5.4); WBC 5.22 X1000 (4.8-10.8)
[2018-12-29 07:46] LABS: CALCIUM 9.9 mg/dL (8.8-10.2); CREATININE 1.2 mg/dL (0.5-0.9); POTASSIUM 3.8 mmol/L (3.5-5.1)
[2018-12-29] MEDS: ZOLOFT PO SCH (08:27)
[2018-12-29] MEDS: LOVENOX SUBQ SCH (08:27)
[2018-12-29] MEDS: LOPRESSOR PO SCH ×2 (08:27→20:23)
[2018-12-29] MEDS: NEURONTIN PO SCH ×2 (08:27→20:24)
[2018-12-29] MEDS: BUSPAR PO SCH ×2 (08:27→20:23)
[2018-12-29] MEDS: ASPIRIN EC PO SCH (08:27)
--- NOTE | 2018-12-29 14:37 | PROGRESS NOTE ---
DATE: 12/29/2018 SUBJECTIVE: No acute events overnight. A stress test done yesterday did not show any acute abnormality. Cardiology department has been following this patient closely and they are not recommending any new treatment. Her chest pain is likely atypical. She has been feeling generalized weakness. I have requested an evaluation by physical therapy. She wants to go to a rehab center because she feels weak so I placed an order for the social worker health services to evaluate if this patient qualifies for that. OBJECTIVE: Vital Signs: Temperature 98.2 degrees, pulse 57, respiratory rate 16, blood pressure 101/59, oxygen saturation 99 on room air. HEENT: Head normocephalic. No trauma. PERRLA. Neck: Supple. No JVD. No masses. Central trachea. Chest: Clear to auscultation. No wheezing. No rales. Abdomen: Soft, nontender, nondistended. No hepatosplenomegaly. Extremities: No edema, no clubbing, no cyanosis. Neurological Examination: The patient is alert and oriented x3. No focal deficits but generalized weakness. Laboratory: WBC 5.2, hemoglobin 12.3, hematocrit 37.7, platelets 185,000. Sodium 141, potassium 3.8, chloride 106, bicarbonate 22, BUN 17, creatinine 1.2, glucose 177, calcium 9.9. ASSESSMENT AND PLAN: 1. Chest pain, atypical. Cardiology department evaluated this patient. A stress test was done and did not show any acute problem. We will continue with the same management. 2. Generalized weakness. As per the patient, also, she has been falling at home. Physical therapy already evaluated this patient. I have consulted a social worker health services to see if this patient qualifies to go to a rehab center. 3. Frequent falls, as above. 4. Type 2 diabetes. Continue pattern of blood sugar and sliding scale insulin. Hemoglobin A1c is 8.2. 5. Hypothyroidism. Continue with Synthroid. 6. Anxiety and depression. Continue with home medication. 7. Chronic pain syndrome. Continue with the same management. 8. Hypertension, stable. 9. Gastroesophageal reflux disease. Continue with proton pump inhibitors. 10. Chronic kidney disease stage 3. This is her baseline. We will monitor. 11. Deep vein thrombosis prophylaxis with Lovenox. 12. Overall, this patient is doing good. I think she can be discharged but since she has been having generalized weakness and she has been falling at home, she has requested an evaluation by physical therapy and the possibility of going to a rehab center. cc: Patrick Bauer MD
[2018-12-29] MEDS: PERCOCET-5 PO SCH (20:24)
[2018-12-29] MEDS: CRESTOR PO SCH (20:24)
[2018-12-30] MEDS: SYNTHROID PO SCH (06:11)
[2018-12-30] MEDS: PRILOSEC PO SCH (06:11)
[2018-12-30] MEDS: HUMULIN R SUBQ SCH ×4 (06:11→21:14)
[2018-12-30 07:55] LABS: BASO# 0.04 X1000 (0.0-0.2); BASO% 0.7 % (0.0-0.8); EOS# 0.17 X1000 (0.0-0.7); EOS% 3.1 % (0.0-10.0); HEMATOCRIT 36.7 % (37.0-47.0); HEMOGLOBIN 11.9 g/dL (12.0-16.0); LYMPH# 1.99 X1000 (1.2-3.4); LYMPH% 36.5 % (20.5-51.1); MCH 30.5 PG (27-31); MCHC 32.4 g/dL (33-37); MCV 94.1 FL (81-99); MONO# 0.38 X1000 (0.11-0.59); MPV 11.3 FL (7.4-10.4); NEUT# 2.87 X1000 (1.4-6.5); NEUT% 52.7 % (42.2-75.2); PLT 168 X1000 (130-400); RDW 12.7 % (11.5-14.5); WBC 5.45 X1000 (4.8-10.8)
[2018-12-30 07:59] LABS: CALCIUM 9.9 mg/dL (8.8-10.2); CREATININE 1.1 mg/dL (0.5-0.9); MAGNESIUM 1.7 mg/dL (1.5-2.7); POTASSIUM 3.9 mmol/L (3.5-5.1)
[2018-12-30] MEDS: BUSPAR PO SCH ×2 (09:31→21:08)
[2018-12-30] MEDS: ZOLOFT PO SCH (09:33)
[2018-12-30] MEDS: NEURONTIN PO SCH ×2 (09:33→21:08)
[2018-12-30] MEDS: ASPIRIN EC PO SCH (09:34)
[2018-12-30] MEDS: LOPRESSOR PO SCH ×3 (09:34→21:08)
[2018-12-30] MEDS: LOVENOX SUBQ SCH (09:34)
--- NOTE | 2018-12-30 15:15 | PROGRESS NOTE ---
DATE: 12/30/2018 SUBJECTIVE: No acute events overnight, pending placement. OBJECTIVE: Vital Signs: Temperature 97.8 degrees, pulse 61, respiratory rate 20, blood pressure 133/61, and oxygen saturation 98 on room air. HEENT: Head normocephalic. No trauma. PERRLA. Neck: Supple. No JVD. No masses. Central trachea. Chest: Clear to auscultation. No wheezing. No rales. Abdomen: Soft, nontender, and nondistended. No hepatosplenomegaly. Extremities: No edema. No clubbing. No cyanosis. Neurological: The patient is alert and oriented x3. No focal deficits but generalized weakness. LABORATORY: WBC 5.5, hemoglobin 11.9, hematocrit 36.7, and platelet 168,000. Sodium 142, potassium 3.9, chloride 108, bicarbonate 25, BUN 22, creatinine 1.1 glucose 179, calcium 9.9, and magnesium 1.6. ASSESSMENT AND PLAN: 1. Chest pain, atypical. Cardiology Department evaluated this patient. Stress test was done, and did not show any acute abnormality. We will continue with same management. 2. Generalized weakness. As per the patient, also she has been falling at home. Physical Therapy already evaluated this patient, and pending placement. 3. Frequent falls as above. 4. Type 2 diabetes. Continue pattern of blood sugar and sliding scale insulin. Hemoglobin A1c is 8.2. 5. Hypothyroidism. Continue with Synthroid. 6. Anxiety and depression. Continue with home medication. 7. Chronic pain syndrome. Continue with same management. 8. Hypertension, stable. 9. Gastroesophageal reflux disease, continue proton pump inhibitors. 10. Chronic kidney disease stage 3. This is her baseline. We will monitor. 11. Deep vein thrombosis prophylaxis with Lovenox. 12. Overall, this patient is doing good. I think she can be discharged pending rehab center placement. cc: Patrick Bauer MD
[2018-12-30] MEDS: CRESTOR PO SCH (21:08)
[2018-12-30] MEDS: PERCOCET-5 PO SCH (21:14)
[2018-12-31] MEDS: HUMULIN R SUBQ SCH ×2 (06:05→10:46)
[2018-12-31] MEDS: SYNTHROID PO SCH (06:16)
[2018-12-31] MEDS: PRILOSEC PO SCH (06:16)
[2018-12-31] MEDS: NEURONTIN PO SCH (09:43)
[2018-12-31] MEDS: BUSPAR PO SCH (09:43)
[2018-12-31] MEDS: ZOLOFT PO SCH (09:44)
[2018-12-31] MEDS: LOVENOX SUBQ SCH (09:45)
[2018-12-31] MEDS: ASPIRIN EC PO SCH (09:45)
[2018-12-31] MEDS: LOPRESSOR PO SCH (09:45)
[2018-12-31 11:14] VITALS: BP 124/67
--- NOTE | 2019-01-01 14:50 | DISCHARGE SUMMARY ---
ADMISSION DATE: 12/27/2018 DISCHARGE DATE: 12/31/2018 DISCHARGE DIAGNOSES: 1. Atypical chest pain, acute coronary syndrome has been ruled out. 2. Generalized weakness. 3. Type 2 diabetes. 4. Hypothyroidism. 5. Anxiety and depression. 6. Chronic pain syndrome. 7. Hypertension. 8. Gastroesophageal reflux disease. 9. Chronic kidney disease stage 3. PROCEDURES PERFORMED: 1. EKG dated 12/27/2018. Conclusion: Sinus rhythm with short [place]. 2. Chest x-ray dated 12/27/2018. Impression: No acute abnormality. 3. Head CT dated 12/27/2018. Impression: Negative brain CT without contrast. 4. Echocardiogram dated 12/28/2018. Impression: Ejection fraction 60 to 65 percent with normal wall motion. Mild enlargement of the right atrium. Trace tricuspid regurgitation, trace pulmonary insufficiency. 5. Nuclear stress test dated 12/28/2018. Findings: No evidence of ischemia during the study. HOSPITAL COURSE: A 73-year-old female with a past medical history of coronary artery disease with cardiac a stent in the past, diabetes, chronic pain syndrome, GERD, who was admitted on 12/27/2018. Apparently over the past month, she has been complaining of generalized itchiness without a rash and pressure like chest pain, which has been intermittent, does not radiate. No nausea but she has been getting some shortness of breath with it. She has she has also had dizziness and lightheadedness over a couple months with a few falls, with one being around 2 to 3 weeks ago when she was trying to move a table. She has been taking Goody every day instead of aspirin every day. She denies tobacco. Cardiac enzymes negative. No ST changes on the EKG. A stress test did not show any acute abnormality, as well as the chest x-ray and head CT. We tried to send this patient to a rehab center, but since this patient was working with physical therapy and she was doing okay, so then the decision of sending this patient home with home health was made and physical therapy at home. fountain worker discussed this with the patient already. At the moment of discharge, this patient was in a stable medical condition, tolerating p.o., ambulating but with some weakness. LABORATORY DATA: Yesterday hemoglobin 11.9, hematocrit 36.7, platelet count 168,000. Hers BUN was 22, creatinine 1.1, and glucose 179. Magnesium 1.7. PHYSICAL EXAMINATION: Vital signs: Temperature 97.9 degrees, pulse 65, respiratory rate 16, blood pressure 124/67, oxygen saturation 98 on room air. HEENT: Head normocephalic. No trauma. PERRLA. Neck: Supple. No JVD. No masses. Central trachea. Chest: Clear to auscultation. No wheezing. No rales. Abdomen: Soft, nontender, nondistended. No hepatosplenomegaly. Extremities: No edema. No clubbing. No cyanosis. Neurological: The patient is alert and oriented x3 with some generalized weakness. DISCHARGE MEDICATIONS: 1. Lantus 80 units subcutaneously q.a.m. 2. NovoLog 15 units subcutaneously t.i.d. 3. Omeprazole 20 mg p.o. daily. 4. Sertraline 150 mg p.o. daily. 5. Ropinirole 0.5 mg p.o. b.i.d. 6. Crestor 40 mg p.o. at bedtime. 7. [place] 7.5 mg p.o. at bedtime as needed. 8. Metoprolol 25 mg p.o. b.i.d. 9. Metformin 850 mg p.o. b.i.d. 10. Synthroid 88 mcg p.o. daily. 11. Gabapentin 900 mg p.o. b.i.d. 12. Fenofibrate 145 mg p.o. daily. 13. Buspirone 7.5 mg p.o. b.i.d. 14. Aspirin 81 mg p.o. daily. FOLLOWUP: with Dr. Griggs on 01/29/2019 at 10 a.m. and also follow with her primary care provider in 1 to 2 weeks. TIME DISCHARGING THIS PATIENT: 35 minutes. cc: Patrick Bauer MD
== END 2018-12-31 13:37 | disposition home or self-care (01) ==
LOC: ED 11:24 → OPS 16:21 → DIRADM 16:21 → SUATTDRO 16:21 → 3N 16:21
PROVIDERS: ADMIT Internal Medicine; ATTEND Internal Medicine
CPT/HCPCS: 70450; 71020; 71046; 78452; 80048; 80053; 80061; 81001; 82550; 82948; 83036; 83735; 83880; 84439; 84443; 84484; 85025; 85027; 85610; 85730; 87088; 93005; 93010; 93017; 93306; 94761; 97110; 97162; 97166; 97530; 97535; 99285; A9270; A9500; J0280; J0820; J1650; J2270; J2785; J3475; J7030; XXXXX